=== PATIENT | female | born 1995 | race Caucasian/White ===

== ENCOUNTER 2022-01-24 15:11 | Emergency (ER) | payer OTHER, SELFPAY ==
[2022-01-24 15:17] VITALS: BP 125/65; PULSE 88; RESP 16; TEMP 36.7; O2SAT 99
--- NOTE | 2022-01-24 15:39 | ED.GENADUL_ITS ---
Discharge Plan Disposition Patient Disposition: HOME Condition: Improving Discharge Details Clinical Impression: Neck pain on left side Primary Care Provider: Mercedes Munguia ED Provider: Avtar Louie Home Meds and New Rx's Prescriptions: New ibuprofen 800 mg tablet 800 mg PO TID PRNQty: 20 0RF cyclobenzaprine 5 mg tablet 5 mg PO TID PRNQty: 10 0RF Continued lamotrigine 100 mg tablet 100 mg PO DAILY 0RF sertraline 100 mg tablet 100 mg PO DAILY 0RF melatonin 5 mg capsule PO PRN 0RF Mirena 20 mcg/24 hours (6 yrs) 52 mg intrauterine device 1 insert intrauterine ONCE Qty: 1 0RF Rx Instructions: as a single dose Zyrtec 10 mg capsule 10 mg PO DAILY 0RF CBD PO PRN0RF multivitamin Tablet 1 tab PO DAILY 0RF buspirone 5 mg Tablet 5 mg PO DAILY 0RF Discharge Instructions Instructions: Neck Pain (ED) Additional Instructions: Flexeril and ibuprofen as directed, Flexeril may cause drowsiness. Cool and/or warm compresses every 2 hours for 20 minutes. Gentle stretching as tolerated, advance activity as tolerated. Please watch for new or worsening symptoms and return to the ER for any. Lastly, I would like you to contact your primary care provider tomorrow to discuss your ER visit and need for potential outpatient reevaluation. Discharge Data Discharge Date/Time-TO BE ENTERED AT DEPARTURE: 01/24/22 16:38 Medical Decision Making 26-year-old female presents to the ER reporting that she went to bed last night feeling well, upon waking she moved her head and felt a pop on the left side of her neck and now her neck has been sore and stiff all day. She denies recent illness or trauma, denies any fever. Denies any radiation of the pain, numbness, tingling, weakness. Examination is consistent with musculoskeletal discomfort. She is afebrile, and no nuchal rigidity whatsoever. While she does not have an obvious muscle spasm, she does state that her neck on the left side feels stiff and she has increased pain with movement. Given there is no neurologic component and she has no midline point tenderness I do not believe that an x-ray is indicated. We discussed options, plan is to give IM Norflex and Toradol. Will provide a prescription for ibuprofen and Flexeril. Patient has not taken any [id number] medications for her discomfort prior to arrival. She is comfortable with this plan and has no additional questions or concerns. Standard discharge and return precautions were provided This documentation was generated using [employer] system, please disregard any oddities of phrase or misspellings. Medical Records Medical records reviewed: Yes I reviewed the patient's medical records. HPI General Mode of arrival: ambulatory . Date/Time Provider Initiated Documentation: 01/24/22 15:36 . Limitations to Documentation: no limitations . Information obtained by: patient . History of Present Illness 26 year old F presents to the emergency department with the chief complaint of L sided neck pain, described as moderate, with intensity rated at 6. Quality is described as aching and sharp, and is localized to the neck and left. Patient reports no radiation. Patient started experiencing this hour(s) (upon waking this morning) and it has been constant. improves with Immobilization improves symptom(s), Movement worsens symptoms . Patient notes no other symptoms.. Patient did receive the following treatments prior to arrival, none Related Data Home Medications Medication Instructions Recorded Confirmed lamotrigine 100 mg tablet 100 mg PO DAILY 08/24/21 01/24/22 melatonin 5 mg capsule mg PO PRN cap 08/24/21 08/28/21 sertraline 100 mg tablet 100 mg PO DAILY 08/24/21 01/24/22 levonorgestrel 20 mcg/24 hours (7 1 insert INTRAUTERINE ONCE #1 ea 08/25/21 01/24/22 yrs) 52 mg intrauterine device (Mirena) CBD PO PRN 08/28/21 08/28/21 cetirizine 10 mg capsule (Zyrtec) 10 mg PO DAILY 08/28/21 01/24/22 multivitamin 1 tab PO DAILY 08/28/21 01/24/22 buspirone 5 mg tablet 5 mg PO DAILY 01/24/22 01/24/22 cyclobenzaprine 5 mg tablet 5 mg PO TID PRN #10 tab 01/24/22 ibuprofen 800 mg tablet 800 mg PO TID PRN #20 tab 01/24/22 Previous Rx's Medication Instructions Recorded levonorgestrel 20 mcg/24 hours (7 1 insert INTRAUTERINE ONCE #1 ea 08/25/21 yrs) 52 mg intrauterine device (Mirena) cyclobenzaprine 5 mg tablet 5 mg PO TID PRN #10 tab 01/24/22 ibuprofen 800 mg tablet 800 mg PO TID PRN #20 tab 01/24/22 Allergies Allergy/AdvReac Type Severity Reaction Status Date / Time Environmental Allergies Allergy Uncoded 01/24/22 15:22 General Stated Complaint: Nk/Back Pain NANCI: 3 Review of Systems Constitutional Constitutional: Denies fever(s), Denies headache(s) and Denies weakness Eyes Eyes: Denies change in vision ENT Ears, Nose, Mouth, and Throat: Denies headache(s), Reports neck pain and Denies sore throat Cardiovascular Cardiovascular: Denies chest pain and Denies dyspnea Respiratory Respiratory: Denies dyspnea Musculoskeletal Musculoskeletal: Denies arthralgias, Reports neck pain, Denies numbness, Reports stiffness and Denies tingling Integumentary/Breasts Skin/Breast: Denies rash Neurologic Neurologic: Denies headache(s), Denies numbness, Denies tingling and Denies weakness PFSH All Active Problems Neck pain on left side (Acute) Overweight (BMI 25.0-29.9) (Acute) Depression (Chronic) Misdiagnosed as bipolar. has psychiatrist prescriber. Bonita Freitas. IUD (intrauterine device) in place (Acute) 2019 Family History Mother Colon polyps Thyroid condition Father , 38 Epilepsy Brother No problems noted. Maternal Grandfather , 60'S Cancer Brain cancer Colon cancer Paternal Grandfather No problems noted. Maternal Grandmother Depression Colon cancer Breast cancer Paternal Grandmother Depression Social History Smoking/Tobacco Use Status: Never Second Hand Exposure: No Smoking risk assessment performed?: Yes Alcohol Intake: current Alcohol Intake frequency: a few times a week Alcohol type: beer, wine and hard liquor Counseling given: Yes Details: recommended max of 1 beer/day. Decrease ETOH content in beer Drug use: Daily Substance use type: marijuana Caregiver/Support person: No Household members: spouse Housing: house Number of Children: 0 Communication Needs: Hard of Hearing Education Level: college Details: [employer] [place]. Do you need help understanding health information?: Rarely current occupation: currently not employed. working on their house (); Pets and animals: Yes Pets and animals: dog(s) Sexually active: Yes Do you think of yourself as: bisexual Current gender identity: female What is your relationship status?: How often do you talk on the phone with friends or family?: three or more times per week How often do you get together with friends or relatives?: twice per week How often do you attend jain or gnosticist services?: 1-3 times per year Do you belong to any clubs or organized social groups?: no Panel score (0-1 are the most socially isolated patients): 2 What type of physical activity do you participate in: walking, bicycling and weight lifting Duration: 45-60 minutes/day Frequency: 3-4 times per week Hermila/Sikh: None Special hermila needs: No Seatbelt use: always Helmet use: Yes Helmet use: always Drive intox or ride w/intox 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 Female Reproductive History Menstrual control method: progestin IUCD (mirena 2019) Exam Const General: cooperative, healthy appearing, comfortable and no acute distress Orientation: alert, awake and oriented x3 HENMT Head: normal to inspection, normocephalic and atraumatic Face and sinus: normal facial exam Mouth: moist mucous membranes Eyes General: appearance normal, both eyes and all related structures Conjunctivae: conjunctivae normal Neck Neck: normal visual inspection, no lymphadenopathy, no meningeal signs, trachea midline, supple and tender Other: Patient does have a follow-up range of motion of her neck, no meningeal signs. Patient does have increased discomfort with movement to the ipsilateral side. There is discomfort across her sternocleidomastoid and her superior trapezius on the left side. No warmth, erythema, swelling, or obvious spasm. Resp Effort & Inspection: normal respiratory effort and able to speak in complete sentences Auscultation: clear to auscultation bilaterally Cardio Rate: regular rate Rhythm: regular rhythm Back/Spine/Pelvis Back: no CVA tenderness and No back tenderness Skin General skin exam: no rashes or lesions noted Neuro General: patient alert, patient awake, moves all extremities and no focal motor deficits Cognition: normal cognition Speech: speech normal Gait: normal gait Motor: muscle tone normal throughout, strength 5/5 throughout, no movement abnormalities noted and no fasciculations Sensory Exam: no sensory deficits noted Extrem General: normal to inspection, full ROM and capillary refill normal Psych Appearance: grossly normal Mental Status: mental status grossly normal Course Vital Signs Vital signs: Vital Signs Temperature 36.7 C 01/24/22 15:17 Pulse 88 01/24/22 15:17 Respiratory Rate 16 01/24/22 15:17 Blood Pressure 125/65 01/24/22 15:17 Pulse Oximetry 99 01/24/22 15:17 Temperature 36.7 C 01/24/22 15:17 Temperature Source Skin 01/24/22 15:17 Pulse 88 01/24/22 15:17 Respiratory Rate 16 01/24/22 15:17 Respiratory Effort 01/24/22 15:17 Blood Pressure 125/65 01/24/22 15:17 Blood Pressure Position Sitting 01/24/22 15:17 Pulse Oximetry 99 01/24/22 15:17 Oxygen Delivery Method Room Air 01/24/22 15:17 Oxygen Flow Rate 0 01/24/22 15:17 Pain Level 8 01/24/22 15:17
[2022-01-24] MEDS: Ketorolac 60 MG/2 ML VIAL IM (16:35)
[2022-01-24] MEDS: Orphenadrine 60 MG/2 ML VIAL IM (16:35)
== END 2022-01-24 16:38 | disposition home or self-care (01) ==
PROVIDERS: Emergency Provider Physician Assistant; PCP Family Medicine
DX: M54.2 Cervicalgia (principal)
CPT/HCPCS: 96372; 99284; J2360; 99283; J1885

== ENCOUNTER 2022-02-08 14:08 | Outpatient (REF) | payer OTHER, SELFPAY ==
[2022-02-10 12:03] LABS: COVID-19 RT-PCR UVMMC Result Negative (Negative)
== END 2022-02-08 14:09 | disposition home or self-care (01) ==
LOC: LBN 14:08
PROVIDERS: PCP Family Medicine; Visit Provider Physician Assistant Medical
DX: Z20.822 Contact with and (suspected) exposure to COVID-19 (principal)
CPT/HCPCS: U0003

== ENCOUNTER 2022-05-17 03:36 | Outpatient (CLI) | payer OTHER, SELFPAY ==
[2022-05-17 22:15] LABS: Rheumatoid Factor <8.6 IU/mL (<12.0)
== END 2022-05-17 03:37 | disposition home or self-care (01) ==
LOC: LOS 03:36
PROVIDERS: PCP Family Medicine; Visit Provider Family Medicine
DX: M25.561 Pain in right knee (principal); M25.562 Pain in left knee; M79.642 Pain in left hand; G89.29 Other chronic pain
CPT/HCPCS: 36415; 86431

== ENCOUNTER 2022-07-14 02:39 | Outpatient (CLI) | payer OTHER, SELFPAY ==
[2022-07-14 12:42] LABS: HCG Quant, Pregnancy 70240 mIU/mL (1-3)
== END 2022-07-14 02:40 | disposition home or self-care (01) ==
LOC: LBO 02:39
PROVIDERS: PCP Family Medicine; Visit Provider Advanced Practice Midwife
DX: O26.891 Other specified pregnancy related conditions, first trimester (principal); R10.32 Left lower quadrant pain; Z3A.01 Less than 8 weeks gestation of pregnancy
CPT/HCPCS: 36415; 84702

== ENCOUNTER 2022-07-16 01:15 | Outpatient (CLI) | payer OTHER, SELFPAY | END 2022-07-16 01:16 | disposition home or self-care (01) | LOC: LBO 01:15 | PROVIDERS: PCP Family Medicine; Visit Provider Advanced Practice Midwife | DX: O26.891 Other specified pregnancy related conditions, first trimester (principal); R10.32 Left lower quadrant pain; Z3A.01 Less than 8 weeks gestation of pregnancy | CPT/HCPCS: 36415; 84702 ==

== ENCOUNTER 2022-08-23 04:07 | Outpatient (CLI) | payer OTHER, SELFPAY ==
[2022-08-23 15:32] LABS: Abs Immature Grans 0.04 10^3/uL (0.0-0.06); Absolute Basophil Count 0.02 10^3/uL (0.0-0.2); Absolute Eosinophil Count 0.33 10^3/uL (0.0-0.7); Absolute Lymphocyte Count 1.95 10^3/uL (1.2-3.4); Absolute Monocyte Count 0.61 10^3/uL (0.1-0.8); Absolute Neutrophil Count 6.74 10^3/uL (1.2-6.7); Basophils % 0.2; Eosinophils % 3.4; HCT 35.7 % (36.0-46.0); HGB 12.5 g/dL (11.2-15.7); Immature Grans % 0.4; Lymphocytes % 20.1; MCH 31.3 pg (27.0-33.0); MCV 89 fL (80-95); MPV 11.4 fL (8.0-11.0); Monocytes % 6.3; Neutrophils % 69.6; Platelet Count 261 10^3/uL (130-400); RDW 11.7 % (11.7-14.6); RDW-SD 37.6 fL; WBC 9.69 10^3/uL (4.4-10.8)
[2022-08-23 16:28] LABS: TSH (W/Ref FT4) 2.06 uIU/mL (0.36-3.74)
[2022-08-23 18:02] LABS: *AMPHETAMINES SCREEN URINE Negative (Negative); *BARBITURATES SCREEN URINE Negative (Negative); *BENZODIAZEPINES SCREEN URINE Negative (Negative); Cannabinoids THC Negative (Negative); Cocaine Screen,Urine Negative (Negative); METHADONE URINE SCREEN Negative (Negative); OPIATES URINE SCREEN Negative (Negative)
[2022-08-23 18:05] LABS: Tricyclic Antidepressants Negative (Negative)
[2022-08-24 09:36] LABS: Hepatitis B Surface Ag Negative (Negative)
[2022-08-24 10:33] LABS: Hepatitis C Ab w Rflx HCV PCR Negative (Negative)
[2022-08-24 11:09] LABS: Rubella IgG Ab (UVM) Positive (See Note); Varicella IgG Antibody Negative (See Note)
[2022-08-24 11:20] LABS: HIV-1/2 Ag & Ab Screen Negative (Negative)
[2022-08-25 14:13] LABS: Syphilis IgG w/Reflex Nonreactive (Nonreactive)
[2022-08-25 14:44] LABS: Chlamydia Result Negative (Negative); GC Result Negative (Negative)
[2022-08-27 18:04] LABS: Specimen WB Whole Blood
[2022-08-31 10:32] LABS: Buprenorphine Negative ng/mL (Cutoff: 5.0); Norbuprenorphine Negative ng/mL (Cutoff: 2.5)
[2022-09-14 15:53] LABS: Result Summary NEGATIVE; Specimen WB Whole Blood
== END 2022-08-23 04:08 | disposition home or self-care (01) ==
LOC: LBO 04:07
PROVIDERS: Advanced Practice Midwife; PCP Family Medicine; Visit Provider Advanced Practice Midwife
DX: O99.341 Other mental disorders complicating pregnancy, first trimester (principal); F41.8 Other specified anxiety disorders; Z3A.11 11 weeks gestation of pregnancy
CPT/HCPCS: 36415; 80307; 80348; 81220; 81222; 81329; 86787; 86803; 86850; 86900; 86901; 87340; 87389; 87491; 87591; 84443; 85025; 86762; 86780; 87086

== ENCOUNTER 2022-08-23 16:56 | Outpatient (REF) | payer OTHER, SELFPAY ==
--- NOTE | 2022-08-23 14:20 | PAPFT_PTH ---
PATIENT: More Machado LOC: [facility] U#:[id number] AGE/SX: 26/F ROOM: RE08/23/[address]: Elva Marquis : 1995 BED: DIS: 08/23/2022 SPEC #: [id number] RECD: 08/23/22 18:25 STATUS: COLLEEN REQ #: [id number] ADELE: 08/23/22 14:[address]: Elva Marquis DEPT: [facility] Cytology RECD BY: Adrianne Lang ENTERED: 08/23/22 18:26 SP TYPE: PAPFT JEAN DR: Mercedes Munguia Tissues: 1 - CX/ENDOCX FOR PAP SMEARS Procedures: PAP THIN PREP/UVM Screening Comments: [id number]
== END 2022-08-23 16:57 | disposition home or self-care (01) ==
LOC: LBN 16:56
PROVIDERS: PCP Family Medicine; Visit Provider Advanced Practice Midwife
DX: Z12.4 Encounter for screening for malignant neoplasm of cervix (principal)
CPT/HCPCS: 88142

== ENCOUNTER 2022-09-20 03:20 | Outpatient (CLI) | payer OTHER, SELFPAY ==
[2022-09-23 12:16] LABS: AFP 36.9 ng/mL; Calculated age at EDD 27 years; Cigarette smoking status non-Smoker; GA used in risk estimate Scan estimate; IVF Pregnancy No; Initial or repeat testing Initial testing; Insulin dependent diabetes No; Maternal Weight 151 lbs; Number of Fetuses 1; Prev Pregnancy w/NTD No; RECOMMENDED FOLLOW UP None.; Results Summary Normal risk
== END 2022-09-20 03:21 | disposition home or self-care (01) ==
PROVIDERS: PCP Family Medicine; Visit Provider Advanced Practice Midwife
DX: Z34.92 Encounter for supervision of normal pregnancy, unspecified, second trimester (principal); Z3A.15 15 weeks gestation of pregnancy
CPT/HCPCS: 36415; 82105

== ENCOUNTER 2022-12-23 03:16 | Outpatient (CLI) | payer OTHER, SELFPAY ==
[2022-12-23 11:14] LABS: HCT 36.5 % (36.0-46.0); HGB 12.3 g/dL (11.2-15.7); MCHC 33.7 % (32.0-36.0); MCV 92 fL (80-95); MPV 10.6 fL (8.0-11.0); Platelet Count 211 10^3/uL (130-400); RBC 3.97 10^6/uL (3.93-5.22); RDW 12.4 % (11.7-14.6); RDW-SD 41.7 fL; WBC 9.03 10^3/uL (4.4-10.8)
[2022-12-23 11:46] LABS: Glucose,1 Hr (Glucola) 108 mg/dL (80-140)
== END 2022-12-23 03:17 | disposition home or self-care (01) ==
LOC: LBO 03:16
PROVIDERS: PCP Family Medicine; Visit Provider Advanced Practice Midwife
DX: Z34.93 Encounter for supervision of normal pregnancy, unspecified, third trimester (principal)
CPT/HCPCS: 36415; 82950; 85027

== ENCOUNTER 2023-02-10 12:04 | Outpatient (REF) | payer OTHER, SELFPAY ==
[2023-02-10 17:10] LABS: *AMPHETAMINES SCREEN URINE Negative (Negative); *BARBITURATES SCREEN URINE Negative (Negative); *BENZODIAZEPINES SCREEN URINE Negative (Negative); Cannabinoids THC Negative (Negative); Cocaine Screen,Urine Negative (Negative); METHADONE URINE SCREEN Negative (Negative); OPIATES URINE SCREEN Negative (Negative); Tricyclic Antidepressants Negative (Negative)
[2023-02-18 18:36] LABS: Buprenorphine Negative ng/mL (Cutoff: 5.0); Norbuprenorphine Negative ng/mL (Cutoff: 2.5)
== END 2023-02-10 12:05 | disposition home or self-care (01) ==
LOC: LBN 12:04
PROVIDERS: PCP Family Medicine; Visit Provider Advanced Practice Midwife
DX: Z34.90 Encounter for supervision of normal pregnancy, unspecified, unspecified trimester (principal)
CPT/HCPCS: 80307; 80348; 87081

== ENCOUNTER 2023-03-14 14:37 | Inpatient (IN) | payer OTHER, SELFPAY ==
[2023-03-14] VITALS (10 sets, daily range): BP systolic 108–143; BP diastolic 58–76; PULSE 60–103; RESP 17; TEMP 36.7–36.9
--- NOTE | 2023-03-14 14:40 | W.PM.OBHPL1 ---
Date of service: 03/14/23 Time of Service: 14:40 Assessment and Plan Assessment and plan (1) Normal labor: Status: Acute Assessment and plan: 1. admit, IV hydration and enti nuasea/ antiacid prn 2. CBC, type and screen and COVID screen 3. Intermittent monitoring of FHR 4. Support labor and reassess in 2-4 hours or prn 5. Expect NVD. KH OB-HPI Labor/Delivery History of Present Illness Reason for Visit: NST Chief Complaint: Uterine Contractions. NBA Calculator Estimated Delivery Date Method Current WG Current Estimate 03/10/23 Ultrasound #1 40w 4d Other Estimates 03/07/23 LMP (Certain) 41w 0d History of Present Expected Delivery Route/Plan - CNM FOB/ - Keo Faria (first child) BB no circ GBS neg Varicella non immune offer PP Specific Issues/Plan 1. Depression, bipolar disorder- takes lamictal and sertraline 1a. Decreased lamictal dose to 50 2. Genetic testing options -Panorama low risk X 5, male, CF neg, and SMA neg, desires AFP-NL 3. Symphysis pubis discomfort - referral to PT Assessment: History Reviewed & Current Narrative: Cherie and Keo present in early labor. She has been having contractions that are regular since 0730 today but became every 4-5 at approximately 1pm. Denies ROM or show. Baby has been active. She is tolerating contractions fairly well with encouragement. She has had nausea and vomiting today as well. Will admit and give IV hydration and zofran/protonix and reassess. Review of Systems All systems reviewed & are unremarkable except as noted in HPI and below PFSH All Active Problems (Updated 03/14/23 @ 14:54 by Elva Johnson CNM) Normal labor (Acute) Maternal varicella, non-immune (Acute) Anxiety (Chronic) (Acute) Depression (Chronic) Misdiagnosed as bipolar. has psychiatrist prescriber. Bonita Freitas Medical History Bipolar 1 disorder Left lower quadrant abdominal pain affecting in first trimester Overweight (BMI 25.0-29.9) Suprapubic discomfort Uncertain lie of fetus Family History Mother Colon polyps Thyroid condition Father , 38 Epilepsy Brother No problems noted. Maternal Grandfather , 60'S Cancer Brain cancer Maternal Grandmother Depression Paternal Grandmother Depression Anxiety Maternal Aunt Breast cancer Paternal Grandfather Heart disease Paternal Aunt PKU (phenylketonuria) Social History Smoking/Tobacco Use Status: Never Second Hand Exposure: No Smoking risk assessment performed?: Yes Alcohol Intake: current Alcohol Intake frequency: a few times a week Alcohol type: beer, wine and hard liquor Counseling given: Yes Details: recommended max of 1 beer/day. Decrease ETOH content in beer Drug use: Daily Substance use type: marijuana Caregiver/Support person: No Household members: spouse Housing: house Number of Children: 0 Communication Needs: Hard of Hearing Education Level: college Details: [employer]. Do you need help understanding health information?: Rarely current occupation: currently not employed. working on their house (); Pets and animals: Yes Pets and animals: dog(s) Sexually active: Yes Do you think of yourself as: bisexual Current gender identity: female What is your relationship status?: How often do you talk on the phone with friends or family?: three or more times per week How often do you get together with friends or relatives?: twice per week How often do you attend orthodox or sikh services?: 1-3 times per year Do you belong to any clubs or organized social groups?: no Panel score (0-1 are the most socially isolated patients): 2 What type of physical activity do you participate in: walking, bicycling and weight lifting Duration: 45-60 minutes/day Frequency: 3-4 times per week Hermila/Methodist: None Special hermila needs: No Seatbelt use: always Helmet use: Yes Helmet use: always Drive intox or ride w/intox substitute bus driver: No Do you feel safe at home: Yes Do you feel safe in your relationship?: Yes Female Reproductive History Menstrual control method: progestin IUCD (mirena 2018) History History 1 Para 0 Hx # Term Pregnancies 0 Multiple births 0 Hx # Pregnancies 0 Ectopic pregnancies 0 AB induced 0 Hx Number of Living Children 0 AB spontaneous 0 Meds Allergies and Home Medications Allergies Allergy/AdvReac Type Severity Reaction Status Date / Time Environmental Allergies Allergy Uncoded 03/14/23 14:49 Home Medications Medication Instructions Recorded Confirmed Type prenat.vits,marcia,agz-yyvn-ptqwm 1 tab PO DAILY 07/27/22 03/14/23 History sertraline 100 mg tablet 50 mg PO DAILY 08/16/22 03/14/23 History lamotrigine 100 mg tablet 50 mg PO DAILY 09/20/22 03/14/23 History cetirizine 10 mg capsule (Zyrtec) 10 mg PO DAILY PRN allergy symptoms 01/06/23 03/14/23 History pantoprazole 40 mg tablet,delayed 40 mg PO DAILY #30 tabs 02/02/23 03/14/23 Rx release (Protonix) Exam Physical Exam Vital signs: Temp Pulse Resp BP 98.1 F 67 17 126/76 03/14/23 14:03 03/14/23 14:03 03/14/23 14:03 03/14/23 14:03 Vital Signs Reviewed: Yes Constitutional Constitutional: moderate distress (due to labor and pain) Detailed Labor and Delivery Exam Dilation: 2 Effacement (%): 80 station: -1 Position: ALEXI Cervix position: posterior Consistency: soft Gloria Score: Cervical Points Exam 0 1 2 3 Dilation Closed 1-2cm 3-4 cm 5-6cm Effacement 0-30% 40-50% 60-70% 80% Consistency Firm Medium Soft Station -3 -2 -1,0 +1,+2 Position Posterior Mid Anterior GLORIA Score(Cervical Ripeness Score): 8 Amniotic Membrane Status: Intact Contraction Frequency(min): 2-3 Contraction Duration(sec): 60 Contraction Intensity: Moderate Fetus A Heart Rate Baseline: 125 Monitor Accelerations: 15 X 15 Monitor Decelerations: None Variability: Moderate (6-25 BPM) Categories: Category I Est. Weight: 7 lb 8 oz HEENT Exam HEENT Exam: Normal Neck Exam Neck Exam: Normal (normal visual exam) Breast Exam Breast Exam: Not Done Respiratory Exam Respiratory Exam: Normal Cardiovascular Exam Cardiovascular Exam: Normal Abdominal Exam Abdominal Exam: Normal (gravid, size equals dates) Rectal Exam Rectal Exam: Not Done Exam Exam: Normal Extremities Exam Extremities Exam: Normal Back/Spine/Pelvis Exam Back Exam: Not Done Pelvis Adequate: Yes Skin Exam Skin Exam: Normal Neurological Exam Neurological Exam: Normal Psychiatric Exam Psychiatric Exam: Normal (anxiety is controlled with information and support) Results Results Group Beta Strep: Negative Blood Type: A+ Rubella Status: Immune Varicella Immunity: Nonimmune Lab Results: Hep B&C neg, HIV neg, Syphilis Neg, GC CT neg, Panorama LR male, CF neg, SMA neg, 1 hour 108 Risk Assessment Risk for Shoulder Dystocia Historical/Initial OB: NEGATIVE FOR: Pelvic Abnormality, Pre- BMI>30, Previous Shoulder Dystocia or Previous Macrosomia 40 Weeks: NEGATIVE FOR: EFW> 4500 gms, Maternal Weight Gain >40lb or Post Dates Delivery Plan @ 36wks: NVD planned. Delivery Plan @ 40 wks: NVD Risk for Pre-Eclampsia Yes, if one or more: NEGATIVE FOR: Hx Pre-E/Gest HTN, Chronic HTN, Multiple Gestation, Pre-gestational DM, Renal Disease, Systemic Lupus or APA Syndrome Yes, if 2 or more: POSITIVE FOR: Nulliparity; NEGATIVE FOR: Age>= 35 yrs, >10yr btwn pregnancies, BMI>30, ethinicty, Mother/Sister w/ Pre-E or Previous IUGR Risk for Post- Hemorrhage Initial: NEGATIVE FOR: Multiple Gestation, Previous PPH, Known Clotting Deficiency, Grand Multiparity or Anticoagulation At Risk?: No Counseled re: Active Management: Yes Date/Initials: 03/14/23 Risks Reviewed Risks Reviewed Upon Admission: Yes
[2023-03-14 15:06] LABS: Source Nasal/Nares
[2023-03-14 15:11] LABS: HCT 36.3 % (36.0-46.0); HGB 12.6 g/dL (11.2-15.7); MCH 30.7 pg (27.0-33.0); MCHC 34.7 % (32.0-36.0); MCV 88 fL (80-95); MPV 12.6 fL (8.0-11.0); Platelet Count 180 10^3/uL (130-400); RBC 4.11 10^6/uL (3.93-5.22); RDW 12.8 % (11.7-14.6); RDW-SD 41.3 fL; WBC 12.71 10^3/uL (4.4-10.8)
[2023-03-14] MEDS: Normal Saline Flush 10 ML SYR IVP (15:15)
[2023-03-14] MEDS: Lactated Ringers 1,000 ML 1000 ML IV (15:17)
[2023-03-14] MEDS: Ondansetron 4 MG/2 ML VIAL IVP (15:18)
[2023-03-14 15:59] LABS: COVID-19 PCR Negative (Negative)
--- NOTE | 2023-03-14 18:45 | W.PM.OBNL1 ---
Date of service: 03/14/23 Time of Service: 18:45 Pelvic Exam Dilation: 4 Effacement (%): 90 station: -1 Cervix Position: posterior Consistency: soft Comments: + show Contractions Monitor Mode: Palpation Contraction Frequency(min): 2-4 Contraction Duration(sec): 60 Intensity: Moderate/Strong Fetus A Monitor: Doppler Heart Rate Baseline: 125 Assessment and Plan Assessment and plan (1) Normal labor: Status: Acute Assessment and plan: 1. continue present management, options for pain management reviewed, will continue with behavioral methods at this time, consider nitrous as needed 2. expect NVD Objective Abnormal lab results 03/14/23 Range/Units 14:37 WBC 12.71 H (4.4-10.8) 10^3/uL MPV 12.6 H (8.0-11.0) fL Temp Pulse Resp BP 98.1 F 61 17 127/75 03/14/23 15:20 03/14/23 16:21 03/14/23 15:20 03/14/23 16:21 Laboratory Results WBC 12.71 10^3/uL (4.4-10.8) H 03/14/23 14:37 RBC 4.11 10^6/uL (3.93-5.22) 03/14/23 14:37 Hgb 12.6 g/dL (11.2-15.7) 03/14/23 14:37 Hct 36.3 % (36.0-46.0) 03/14/23 14:37 MCV 88 fL (80-95) 03/14/23 14:37 MCH 30.7 pg (27.0-33.0) 03/14/23 14:37 MCHC 34.7 % (32.0-36.0) 03/14/23 14:37 RDW 12.8 % (11.7-14.6) 03/14/23 14:37 Plt Count 180 10^3/uL (130-400) 03/14/23 14:37 MPV 12.6 fL (8.0-11.0) H 03/14/23 14:37 COVID-19 Source Nasal/Nares 03/14/23 12:45 SARS-CoV-2 (PCR) Negative (Negative) 03/14/23 12:45 Patient ABO/Rh A Positive 03/14/23 14:57 Antibody Screen NEGATIVE 03/14/23 14:57 Vital Signs Reviewed: Yes Subjective Interval history since last seen: working well with contractions, currently in shower. KH Results Hemoglobin/Hematocrit: Hgb 12.6 g/dL (11.2-15.7) 03/14/23 14:37 Hct 36.3 % (36.0-46.0) 03/14/23 14:37 Abnormal Lab Findings: Abnormal Labs 03/14/23 14:37 WBC 12.71 H MPV 12.6 H
--- NOTE | 2023-03-14 18:48 | W.OBNST ---
Date of service: 03/14/23 Time of Service: 14:00 NST Evaluation Reason for NST Reasons for Nonstress Test: OTHER, SEE COMMENT Reason for NST Other: rule out labor Gestational Age Gestational Age in Weeks and Days: 40 Weeks and 4Days Test and Monitor Explained Test/Monitor Explained: Test Explained, Monitor Explained and Patient Verbalized Understanding Vital Signs Blood Pressure: 126/76 Pulse: 67 Temperature: 98.1 F Urine Results Urine Protein: Negative Urine Ketones: Positive Urine Glucose: Negative Urine Blood: Negative NST Information Date on Monitor: 03/14/23 Time on Monitor: 13:39 Date off Monitor: 03/14/23 Time off Monitor: 14:15 Total Time on Monitor: 36 NST Interventions: PO Hydration Contraction Frequency: 2-4 NST Evaluation Patient States Movement: Present FHR Baseline: 130 Variability: Moderate 6-25 bpm Accelerations: 15x15 Decelerations: None NST Results: Reactive Note Ultrasound Done: N/A. NST Note Note: NST is reactive and reassuring. Jody is in early labor but feels she needs support and will be admitted. BHARTI NST Reviewed and Verified by: Elva Johnson
[2023-03-14] MEDS: Lactated Ringers 1,000 ML 200 ML IV (19:18)
--- NOTE | 2023-03-14 20:22 | W.PM.OBNL1 ---
Date of service: 03/14/23 Time of Service: 20:22 Pelvic Exam Comments: deferred Contractions Monitor Mode: Palpation Contraction Frequency(min): 2-4 Contraction Duration(sec): 60-80 Intensity: Moderate/Strong Fetus A Monitor: Doppler Heart Rate Baseline: 130 Amniotic Membrane Status: Intact Assessment and Plan Assessment and plan (1) Normal labor: Status: Acute Assessment and plan: 1. continue present management 2. labor support offered often 3. Expect NVD. KH Objective Abnormal lab results 03/14/23 Range/Units 14:37 WBC 12.71 H (4.4-10.8) 10^3/uL MPV 12.6 H (8.0-11.0) fL Temp Pulse Resp BP 98.2 F 83 17 127/73 03/14/23 19:05 03/14/23 19:05 03/14/23 15:20 03/14/23 19:05 Laboratory Results WBC 12.71 10^3/uL (4.4-10.8) H 03/14/23 14:37 RBC 4.11 10^6/uL (3.93-5.22) 03/14/23 14:37 Hgb 12.6 g/dL (11.2-15.7) 03/14/23 14:37 Hct 36.3 % (36.0-46.0) 03/14/23 14:37 MCV 88 fL (80-95) 03/14/23 14:37 MCH 30.7 pg (27.0-33.0) 03/14/23 14:37 MCHC 34.7 % (32.0-36.0) 03/14/23 14:37 RDW 12.8 % (11.7-14.6) 03/14/23 14:37 Plt Count 180 10^3/uL (130-400) 03/14/23 14:37 MPV 12.6 fL (8.0-11.0) H 03/14/23 14:37 COVID-19 Source Nasal/Nares 03/14/23 12:45 SARS-CoV-2 (PCR) Negative (Negative) 03/14/23 12:45 Patient ABO/Rh A Positive 03/14/23 14:57 Antibody Screen NEGATIVE 03/14/23 14:57 Subjective Interval history since last seen: Cherie has requested and started using nitrous for pain relief with contractions. She is working well with them. IV hydration due to occasional vomiting due to pain. Keo is supportive. KH Interventions Pain Management Interventions: Nitrous Oxide , instructed on proper use and potential side effects, verbalizes understanding . Results Hemoglobin/Hematocrit: Hgb 12.6 g/dL (11.2-15.7) 03/14/23 14:37 Hct 36.3 % (36.0-46.0) 03/14/23 14:37 Abnormal Lab Findings: Abnormal Labs 03/14/23 14:37 WBC 12.71 H MPV 12.6 H
--- NOTE | 2023-03-14 23:00 | W.PM.OBNL1 ---
Date of service: 03/14/23 Time of Service: 23:00 Pelvic Exam Dilation: 8 Effacement (%): 100 station: 0 Contractions Monitor Mode: Palpation Contraction Frequency(min): 2 Contraction Duration(sec): 60 Intensity: Strong Fetus A Monitor: Doppler Heart Rate Baseline: 115 Accelerations: Present (auscultated at 140 during contractions, 115-120 between) Amniotic Membrane Status: Intact Assessment and Plan Assessment and plan (1) Normal labor: Status: Acute Assessment and plan: 1. Continue current management, expect NVD. KH Objective Abnormal lab results 03/14/23 Range/Units 14:37 WBC 12.71 H (4.4-10.8) 10^3/uL MPV 12.6 H (8.0-11.0) fL Temp Pulse Resp BP 98.0 F 78 17 113/60 03/14/23 22:26 03/14/23 22:26 03/14/23 15:20 03/14/23 22:26 Laboratory Results WBC 12.71 10^3/uL (4.4-10.8) H 03/14/23 14:37 RBC 4.11 10^6/uL (3.93-5.22) 03/14/23 14:37 Hgb 12.6 g/dL (11.2-15.7) 03/14/23 14:37 Hct 36.3 % (36.0-46.0) 03/14/23 14:37 MCV 88 fL (80-95) 03/14/23 14:37 MCH 30.7 pg (27.0-33.0) 03/14/23 14:37 MCHC 34.7 % (32.0-36.0) 03/14/23 14:37 RDW 12.8 % (11.7-14.6) 03/14/23 14:37 Plt Count 180 10^3/uL (130-400) 03/14/23 14:37 MPV 12.6 fL (8.0-11.0) H 03/14/23 14:37 COVID-19 Source Nasal/Nares 03/14/23 12:45 SARS-CoV-2 (PCR) Negative (Negative) 03/14/23 12:45 Patient ABO/Rh A Positive 03/14/23 14:57 Antibody Screen NEGATIVE 03/14/23 14:57 Subjective Interval history since last seen: Nitrous is working well for Cherie, she is breathing through contractions well. Starting to feel some vaginal pressure but no involuntary urge to push. KH Results Hemoglobin/Hematocrit: Hgb 12.6 g/dL (11.2-15.7) 03/14/23 14:37 Hct 36.3 % (36.0-46.0) 03/14/23 14:37 Abnormal Lab Findings: Abnormal Labs 03/14/23 14:37 WBC 12.71 H MPV 12.6 H
[2023-03-15] VITALS (15 sets, daily range): BP systolic 106–118; BP diastolic 53–77; PULSE 67–99; RESP 16–17; TEMP 36.5–37.3
--- NOTE | 2023-03-15 01:03 | W.PM.OBNL1 ---
Date of service: 03/15/23 Time of Service: 01:03 Contractions Monitor Mode: Palpation Contraction Frequency(min): 2-3 Contraction Duration(sec): 60-80 Intensity: Strong Fetus A Monitor: Doppler Heart Rate Baseline: 120 Assessment and Plan Assessment and plan (1) Normal labor: Status: Acute Assessment and plan: 1. Will encourage position changes and emptying of bladder in BR 2. Reassess in 1 hour or prn. KH Objective Abnormal lab results 03/14/23 Range/Units 14:37 WBC 12.71 H (4.4-10.8) 10^3/uL MPV 12.6 H (8.0-11.0) fL Temp Pulse Resp BP 98.1 F 82 17 118/64 03/15/23 00:22 03/15/23 00:22 03/14/23 15:20 03/15/23 00:22 Laboratory Results WBC 12.71 10^3/uL (4.4-10.8) H 03/14/23 14:37 RBC 4.11 10^6/uL (3.93-5.22) 03/14/23 14:37 Hgb 12.6 g/dL (11.2-15.7) 03/14/23 14:37 Hct 36.3 % (36.0-46.0) 03/14/23 14:37 MCV 88 fL (80-95) 03/14/23 14:37 MCH 30.7 pg (27.0-33.0) 03/14/23 14:37 MCHC 34.7 % (32.0-36.0) 03/14/23 14:37 RDW 12.8 % (11.7-14.6) 03/14/23 14:37 Plt Count 180 10^3/uL (130-400) 03/14/23 14:37 MPV 12.6 fL (8.0-11.0) H 03/14/23 14:37 COVID-19 Source Nasal/Nares 03/14/23 12:45 SARS-CoV-2 (PCR) Negative (Negative) 03/14/23 12:45 Patient ABO/Rh A Positive 03/14/23 14:57 Antibody Screen NEGATIVE 03/14/23 14:57 Subjective Interval history since last seen: Cherie has had mild rectal pressure off and on. Is being encouraged to get out of bed to empty her bladder and will reassess for cervical changes in next hour if no involuntary urge. Her Mother has arrived from out of town to be a secondary support. KH Results Hemoglobin/Hematocrit: Hgb 12.6 g/dL (11.2-15.7) 03/14/23 14:37 Hct 36.3 % (36.0-46.0) 03/14/23 14:37 Abnormal Lab Findings: Abnormal Labs 03/14/23 14:37 WBC 12.71 H MPV 12.6 H
--- NOTE | 2023-03-15 01:37 | W.PM.OBNL1 ---
Date of service: 03/15/23 Time of Service: 01:37 Pelvic Exam Dilation: 10 Effacement (%): 100 station: 0 Contractions Monitor Mode: Palpation Contraction Frequency(min): 2-3 Contraction Duration(sec): 60-80 Intensity: Strong Fetus A Monitor: Doppler Heart Rate Baseline: 125 Assessment Note: No auscultated decelerations before, during or for 60 seconds following contractions. Assessment and Plan Assessment and plan (1) Normal labor: Status: Acute Assessment and plan: 1. Patient is encouraged to bear down with contractions but she is working well with Nitrous and does not have involuntary urge at this time. Will allow for laboring down and reassess in 1-2 hours or as indicated. 2. FHR has been WNL throughout labor via doppler. KH Objective Abnormal lab results 03/14/23 Range/Units 14:37 WBC 12.71 H (4.4-10.8) 10^3/uL MPV 12.6 H (8.0-11.0) fL Temp Pulse Resp BP 98.1 F 82 17 118/64 03/15/23 00:22 03/15/23 00:22 03/14/23 15:20 03/15/23 00:22 Laboratory Results WBC 12.71 10^3/uL (4.4-10.8) H 03/14/23 14:37 RBC 4.11 10^6/uL (3.93-5.22) 03/14/23 14:37 Hgb 12.6 g/dL (11.2-15.7) 03/14/23 14:37 Hct 36.3 % (36.0-46.0) 03/14/23 14:37 MCV 88 fL (80-95) 03/14/23 14:37 MCH 30.7 pg (27.0-33.0) 03/14/23 14:37 MCHC 34.7 % (32.0-36.0) 03/14/23 14:37 RDW 12.8 % (11.7-14.6) 03/14/23 14:37 Plt Count 180 10^3/uL (130-400) 03/14/23 14:37 MPV 12.6 fL (8.0-11.0) H 03/14/23 14:37 COVID-19 Source Nasal/Nares 03/14/23 12:45 SARS-CoV-2 (PCR) Negative (Negative) 03/14/23 12:45 Patient ABO/Rh A Positive 03/14/23 14:57 Antibody Screen NEGATIVE 03/14/23 14:57 Subjective Interval history since last seen: Cherie is in good control of her contractions with use of Nitrous. She agrees to VE and was found to be 10 cm 0 station, + show and leaking small amounts of clear fluid. She has no current urge to push but does do mild grunting. Will allow for laboring down at this time per patient desires. Results Hemoglobin/Hematocrit: Hgb 12.6 g/dL (11.2-15.7) 03/14/23 14:37 Hct 36.3 % (36.0-46.0) 03/14/23 14:37 Abnormal Lab Findings: Abnormal Labs 03/14/23 14:37 WBC 12.71 H MPV 12.6 H
[2023-03-15] MEDS: Oxytocin/Normal Saline 30 UNIT/500 ML BAG 95 UNITS IV (04:42)
--- NOTE | 2023-03-15 05:53 | OBVDS_ITS ---
Date of service: 03/15/23 Time of Service: 05:53 OB Labor/ Delivery Information Baby A Delivery Delivery Method: Spontaneaous Presentation: Cephalic Cephalic Position: Vertex Vertex Position: Left Occipital Anterior Cord Description-Baby A: 3 Vessels, Nuchal Cord (X1 loose) and Clamped/Cut Amniotic Fluid: Meconium (light) Estimated Blood Loss: 150 Delivery Outcome: Liveborn Complications: none Infant Transferred: Remains with Mother Note: Cherie Machado presented midday on 03/14/23 in early labor, reporting contractions began at 0830 but became intense at 1030. She was 2cm on admission and having regular contractions. She progressed to 10 cm on 03/15/23 at 0128 but had no urge to push and choose to labor down with use of Nitrous. FHR via doppler was reassuring in 120-130 range throughout labor. She began to bear down with open mouth pushing at 0221 and second stage huddle was held. Low risk for shoulder dystocia or PPH. She delivered a live male over intact perineum with 1st degree right labial laceration at 0442. Baby was placed skin to skin and positive family bonding was noted. Baby boy had scores of 9 and 10 at 1 and 5 minutes respectively. Cord was double clamped and cut after 5 minutes of delayed cord clamping. Pitocin was begun via IV per protocol after baby delivered. Cord blood obtained. Placenta delivered at 0552, intact with gentle cord traction and maternal pushing effort. Fundus firms to U with massage. EBL 150cc. 1st degree labial laceration is re-approximated using 4.0 vicryl under 1% lidocaine local. Patient tolerated fairly well. Reviewed that labial lacerations can have irregular border when they heal and patient verbalizes understanding but does not want any further repair once edges were brought together. Cherie plans to breast feed. They do not intend to have their baby boy circumcised. Undecided on contraception plan at this time. Expect normal PP course. Baby's weight 8lb 5 oz. Providers Nurse Clinical Technician: Elva Johnson Nurse: Sirena Beltran Nurse: Nata Guajardo Labor/Delivery Information Number of Babies in Womb: 1 Steroids Given: None Reason Steroids Not Administered: N/A Group Beta Strep: Negative Antibiotics Administered: No Rubella Status: Immune Blood Type: A+ Varicella Immunity: Nonimmune Shoulder Dystocia: No Stages of Labor Onset of Labor Date: 03/14/23 Onset of Labor Time: 08:30 Complete Dilatation Date: 03/15/23 Complete Dilatation Time: 01:28 Labor - Stage 1 Duration: 16 hours and 58 minutes ROM Baby A: 03/15/23 ROM Baby A: 01:28 ROM Total Time- Baby A: [id number] Infant Delivery Date-Baby A: 03/15/23 Delivery Time-Baby A: 04:42 Labor Stage 2 Duration: 3 hours and 14 minutes Placenta Delivery Date-Baby A: 03/15/23 Placenta Delivery Time-Baby A: 05:52 Labor-Stage 3 Duration: 1 hours and 10 minutes Total Length of Labor-Baby A: 20 hours and 12 minutes Placenta Status: Delivered Baby A Infant Gender: Male Gestational Status: Term (39-41.6 wks) Gestational Age in Weeks/Days: 40 Weeks and 5 Days Score-1 Minute Interval(Baby A) Heart Rate-1 minute: 100 BPM or Greater Respiratory Effort- 1 minute: Spontaneous/Strong Cry Muscle Tone-1 minute: Active Movement Reflex Response-1 minute: Minimal Response Color-1 minute: [place]/No Cyanosis Total Score-1 minute: 9 Score-5 Minute Interval(Baby A) Heart Rate- 5 minute: 100 BPM or Greater Respiratory Effort-5 minute: Spontaneous/Strong Cry Muscle Tone-5 minute: Active Movement Reflex Response-5 minute: Prompt Response Color-5 minute: [place]/No Cyanosis Total Score- 5 minute: 10
[2023-03-15] MEDS: Dibucaine 1% 28 GM TUBE TP (07:53)
[2023-03-15] MEDS: Ibuprofen 600 MG TAB PO (07:54)
[2023-03-15] MEDS: Docusate Sodium 100 MG CAP PO ×2 (07:54→19:32)
[2023-03-15] MEDS: Sertraline 50 MG TAB PO (07:54)
[2023-03-15] MEDS: Hamamelis Leaf/Glycerin 100 EACH BOX PR (07:54)
[2023-03-15] MEDS: lamoTRIgine 25 MG TAB 50 MG PO (07:59)
[2023-03-15] MEDS: Acetaminophen 325 MG TAB 650 MG PO (19:31)
[2023-03-16 03:05] VITALS: BP 107/68; PULSE 77; TEMP 36.7
[2023-03-16] MEDS: Ibuprofen 600 MG TAB PO (03:16)
[2023-03-16] MEDS: lamoTRIgine 25 MG TAB 50 MG PO (08:30)
[2023-03-16] MEDS: Sertraline 50 MG TAB PO (08:31)
[2023-03-16] MEDS: Docusate Sodium 100 MG CAP PO (08:31)
[2023-03-16 08:35] VITALS: BP 111/72; PULSE 85; RESP 16; TEMP 36.4; O2SAT 97
[2023-03-16] MEDS: Dibucaine 1% 28 GM TUBE TP (08:51)
--- NOTE | 2023-03-16 09:06 | W.PM.OBPNV1 ---
Date of service: 03/16/23 Time of Service: 08:00 Assessment and Plan Assessment and plan (1) care following vaginal delivery: Status: Acute Assessment and plan: 1. Normal PP course, will discharge to home after Varicella vaccine due to VZV non immune 2. Discharge instructions reviewed, discussed PPD and importance of her reaching out to her prescribing provider / psych provider to inform that baby has been delivered and arrange for any follow up. Discussed signs of blues, PPD and PP psychosis and how to receive care. 3. Will RTO in 2 and 6 weeks or prn for PP evaluation. She is aware to call for any concerns outside of those visits, declines need for early visit. Cherie has good supports and provider to help with any mood changes and feels she has a good management plan. (2) Lactating mother: Status: Acute Assessment and plan: 1. Continue present management and will follow up with Pediatric providers for weight checks and assessment as scheduled 2. Encouraged report of any medication changes to pediatrics while breast feeding. 3. Reviewed signs of mastitis and when to call. Subjective Subjective Interval history: Cherie is feeling well. Is looking forward to discharge to home. Feels breast feeding is going very well. Denies pain or heavy bleeding. Patient's Mood: happy [place] baby status: Doing well, Nursing well and Rooming in feeding status: Exclusively breast feeding Exam Physical Exam Vital signs: Temp Pulse Resp BP 98.1 F 77 16 107/68 03/16/23 03:05 03/16/23 03:05 03/15/23 12:15 03/16/23 03:05 Vital Signs Reviewed: Yes Constitutional Constitutional: no acute distress, average body habitus and cooperative HEENT Exam HEENT Exam: Normal Neck Exam Neck Exam: Normal (normal visual inspection) Respiratory Exam Respiratory Exam: Normal Cardiovascular Exam Cardiovascular Exam: Normal Abdominal Exam Abdomen: Other (normal exam) Fundal Exam Fundus: Below Umbilicus and Firm Comment: small lochia noted. Rectal Exam Rectal Exam: Not Done Exam Perineum: Intact, Normal and Repair Intact Extremities Exam Extremity Exam: Normal (denies calf tenderness) and Full ROM Back/Spine/Pelvis Exam Back Exam: Normal Skin Exam Skin Exam: Normal Neurological Exam Neurological Exam: Normal Psychiatric Exam Psychiatric Exam: Normal Results Hemoglobin/Hematocrit: Hgb 12.6 g/dL (11.2-15.7) 03/14/23 14:37 Hct 36.3 % (36.0-46.0) 03/14/23 14:37 Abnormal Lab Findings: Abnormal Labs 03/14/23 14:37 WBC 12.71 H MPV 12.6 H
--- NOTE | 2023-03-16 09:14 | W.PM.OBDISCH ---
Date of service: 03/16/23 Time of Service: 09:14 DS: Diagnosis Discharge Diagnosis (1) care following vaginal delivery: Status: Acute Asessment and Plan: 1. Normal PP course, will discharge to home after Varicella vaccine due to VZV non immune 2. Discharge instructions reviewed, discussed PPD and importance of her reaching out to her prescribing provider / psych provider to inform that baby has been delivered and arrange for any follow up. Discussed signs of blues, PPD and PP psychosis and how to receive care. 3. Will RTO in 2 and 6 weeks or prn for PP evaluation. She is aware to call for any concerns outside of those visits, declines need for early visit. Cherie has good supports and provider to help with any mood changes and feels she has a good management plan. (2) Lactating mother: Status: Acute Asessment and Plan: 1. continue present management and follow up with pediatric provider as scheduled 2. to call with concerns related to breast feeding or prn. Discharge Plan Disposition Patient Disposition: Home Condition: Good Discharge Details Reason For Visit: Labor Admit Date/Time: 03/14/23 14:37 Admit Provider: Elva Johnson Attending Provider: Elva Johnson Primary Care Provider: Mercedes Munguia Hospital Course Hospital Course: Normal labor and then NVD of live male infant over intact perineum and 1st degree right labial laceration. Normal PP course to date. Breast feeding well established. Home Meds and New Rx's Prescriptions: Continued sertraline 100 mg tablet 50 mg PO DAILY lamotrigine 100 mg tablet 50 mg PO DAILY prenat.vits,marcia,[id number] Tablet 1 tab PO DAILY Zyrtec 10 mg capsule 10 mg PO DAILY PRN (Reason: allergy symptoms) pantoprazole [Protonix] 40 mg tablet,delayed release (DR/EC) 40 mg PO DAILY Qty: 30 1RF Discharge Instructions Instructions: Depression (GEN) Stand Alone Forms: BC Instructions, BC Post Vaginal Deliver Activity:: Activity as Tolerated Equipment/Supplies:: No Equipment Needed Diet:: As Tolerated Discharge Orders Discharge Orders: Discharge Order (Routine); Ordered 03/16/23 Ordered By: Elva Johnson OB:DS Summary Summary Vaginal Delivery Method: Spontaneaous Laceration Extension: First Degree Contraception Discussed Contraception Discussed: Yes Contraceptive Plan: Foam/Condoms, [place] Infant Gender-Baby A: Male weight: 8 lb 5 oz Disposition of Baby A: Home Status at Discharge Functional status at discharge: independent ambulation Overall status at discharge: patient is back to baseline Mental Status: mental status grossly normal Speech and Movement: speech and movement normal Mood: congruent mood Affect: normal affect Time Spent with Patient providing and/or coordinating discharge services: Less than 30 minutes Hospital Course normal labor and and period. Exam Physical Exam Vital signs: Temp Pulse Resp BP 98.1 F 77 16 107/68 03/16/23 03:05 03/16/23 03:05 03/15/23 12:15 03/16/23 03:05 Vital Signs Reviewed: Yes Constitutional Constitutional: no acute distress, average body habitus and cooperative HEENT Exam HEENT Exam: Normal Neck Exam Neck Exam: Normal (normal visual inspection) Respiratory Exam Respiratory Exam: Normal Cardiovascular Exam Cardiovascular Exam: Normal Abdominal Exam Abdomen: Other (normal exam) Fundal Exam Fundus: Below Umbilicus and Firm Comment: small lochia noted. Rectal Exam Rectal Exam: Not Done Exam Perineum: Intact, Normal and Repair Intact Extremities Exam Extremity Exam: Normal (denies calf tenderness) and Full ROM Back/Spine/Pelvis Exam Back Exam: Normal Skin Exam Skin Exam: Normal Neurological Exam Neurological Exam: Normal Psychiatric Exam Psychiatric Exam: Normal PFSH All Active Problems (Updated 03/16/23 @ 09:08 by Elva Johnson CNM) Lactating mother (Acute) care following vaginal delivery (Acute) Normal labor (Acute) Maternal varicella, non-immune (Acute) Anxiety (Chronic) (Acute) Depression (Chronic) Misdiagnosed as bipolar. has psychiatrist prescriber. Bonita Freitas Medical History Bipolar 1 disorder Left lower quadrant abdominal pain affecting in first trimester Overweight (BMI 25.0-29.9) Suprapubic discomfort Uncertain lie of fetus Family History Mother Colon polyps Thyroid condition Father , 38 Epilepsy Brother No problems noted. Maternal Grandfather , 60'S Cancer Brain cancer Maternal Grandmother Depression Paternal Grandmother Depression Anxiety Maternal Aunt Breast cancer Paternal Grandfather Heart disease Paternal Aunt PKU (phenylketonuria) Social History Smoking/Tobacco Use Status: Never Second Hand Exposure: No Smoking risk assessment performed?: Yes Alcohol Intake: current Alcohol Intake frequency: a few times a week Alcohol type: beer, wine and hard liquor Counseling given: Yes Details: recommended max of 1 beer/day. Decrease ETOH content in beer Drug use: Daily Substance use type: marijuana Details: not since for mj and alcohol Caregiver/Support person: No Household members: spouse Housing: house Number of Children: 0 Communication Needs: Hard of Hearing Education Level: college Details: [employer] Do you need help understanding health information?: Rarely current occupation: currently not employed. working on their house (); Pets and animals: Yes Pets and animals: dog(s) Sexually active: Yes Do you think of yourself as: bisexual Current gender identity: female What is your relationship status?: How often do you talk on the phone with friends or family?: three or more times per week How often do you get together with friends or relatives?: twice per week How often do you attend samaritan or latter day services?: 1-3 times per year Do you belong to any clubs or organized social groups?: no Panel score (0-1 are the most socially isolated patients): 2 What type of physical activity do you participate in: walking, bicycling and weight lifting Duration: 45-60 minutes/day Frequency: 3-4 times per week Hermila/Bahai: None Special hermila needs: No Seatbelt use: always Helmet use: Yes Helmet use: always Drive intox or ride w/intox sales driver: No Do you feel safe at home: Yes Do you feel safe in your relationship?: Yes Female Reproductive History Menstrual control method: progestin IUCD (mirena 2019) History History 1 Para 0 Hx # Term Pregnancies 0 Multiple births 0 Hx # Pregnancies 0 Ectopic pregnancies 0 AB induced 0 Hx Number of Living Children 0 AB spontaneous 0 DS: Data Vitals/I&O Vitals and I&O: Vital Signs Temperature 98.1 F 03/16/23 03:05 Temperature 98.1 F 03/14/23 18:49 Temperature Source Oral 03/16/23 03:05 Pulse 77 03/16/23 03:05 Pulse 67 03/14/23 18:49 Pulse Rhythm Regular 03/15/23 20:02 Respiratory Rate 16 03/15/23 12:15 Respiratory Depth Normal 03/15/23 20:02 Blood Pressure 107/68 03/16/23 03:05 Blood Pressure 126/76 03/14/23 18:49 Blood Pressure Mean 81 03/16/23 03:05 Oxygen Delivery Method Room Air 03/14/23 15:20 Oxygen Flow Rate 0 03/14/23 15:20 Pain Level 4 03/15/23 07:26 Comment taken during contraction, will retake 03/14/23 16:20 Intake & Output 03/15/23 03/15/23 03/16/23 11:59 23:59 11:59 Intake Total 1000 / 1500 500 / 1500 Output Total 250 / 1300 1050 / 1300 Balance 750 / 200 -550 / 200 Intake: IV 1000 / 1500 500 / 1500 Output: Urine 250 / 1300 1050 / 1300
[2023-03-16] MEDS: Varicella Virus Vaccine (Live) 0.5 ML SC (10:08)
== END 2023-03-16 14:00 | disposition home or self-care (01) | DRG 807 ==
LOC: OBS 03-15 08:43 → BCD 03-16 09:27
PROVIDERS: Admitting Provider Advanced Practice Midwife; PCP Family Medicine; Visit Provider Advanced Practice Midwife
DX: O99.344 Other mental disorders complicating childbirth (principal); Z37.0 Single live birth; Z3A.40 40 weeks gestation of pregnancy; O70.0 First degree perineal laceration during delivery; O77.0 Labor and delivery complicated by meconium in amniotic fluid; O69.81X0 Labor and delivery complicated by cord around neck, without compression, not applicable or unspecified; F31.9 Bipolar disorder, unspecified
CPT/HCPCS: 85027; 86850; 86900; 86901; 87635; 59025; J2405; J3490

== ENCOUNTER 2024-06-05 11:25 | Emergency (ER) | payer OTHER, SELFPAY ==
[2024-06-05 11:29] VITALS: BP 120/70; PULSE 87; RESP 16; TEMP 36.9; O2SAT 98
--- NOTE | 2024-06-05 11:44 | ED.GENADUL_ITS ---
Discharge Plan Disposition Patient Disposition: Home Condition: Stable Discharge Details Clinical Impression: Need for post exposure prophylaxis for rabies Primary Care Provider: Mercedes Munguia ED Provider: Emory Enamorado Home Meds and New Rx's Prescriptions: No Action sertraline 100 mg tablet 50 mg PO DAILY lamotrigine 100 mg tablet 50 mg PO DAILY prenat.vits,marcia,[id number] Tablet 1 tab PO DAILY ferrous sulfate 325 mg (65 mg iron) tablet 325 mg PO DAILY Qty: 90 4RF cholecalciferol (vitamin D3) [Vitamin D3] 10 mcg (400 unit) tablet,chewable 10 mcg PO DAILY docusate sodium 100 mg capsule 100 mg PO DAILY Zyrtec 10 mg capsule 10 mg PO DAILY PRN (Reason: allergy symptoms) Discharge Instructions Instructions: Rabies, Rabies Immune Globulin (Human), Rabies Vaccine Additional Instructions: You were seen in the emergency department for your bat exposure with possible bite, bats teeth are too small to be noticed on the skin usually so we need to initiate rabies postexposure prophylaxis with rabies immunoglobulin as well as a 4 shot rabies vaccine series. Today is day 0, I am filling out orders for you to receive the subsequent rabies shots on day 3-Tuesday, June 08, day 7-Tuesday, June 12, day 14-Tuesday, June 19. The subsequent [facility]. Please take any Tylenol and ibuprofen as needed for any body aches or chills from the vaccines administered today-return to ED with profound lethargy, chest pain, respiratory distress, diffuse hives, any oral swelling. Referrals: Mercedes Munguia MD [Primary Care Provider] - Discharge Data Discharge Date/Time-TO BE ENTERED AT DEPARTURE: 06/05/24 12:53 HPI General Date/Time Provider Initiated Documentation: 06/05/24 11:28 . HPI Narrative: [ ] year-old [ ] presents to ED today by POV/ambulating with a chief complaint of awoken with a bat in bedroom with onset this morning- denies any known bite, but cannot be sure. Quality described as no pain anywhere, no radiation to skin changes, itching, bleeding, bruising. Severity is described as 0/10. Palliating factors include nothing specific. Provoking factors include nothing specific. Events leading up to the incident/Associated Symptoms: Patient is naive to rabies vaccine. Patient not anticoagulated. Related Data Home Medications ?Medication ?Instructions ?Recorded ?Confirmed prenat.vits,marcia,wkz-gmck-dexse 1 tab PO DAILY 07/27/22 06/05/24 sertraline 100 mg tablet 50 mg PO DAILY 08/16/22 06/05/24 lamotrigine 100 mg tablet 50 mg PO DAILY 09/20/22 06/05/24 cetirizine 10 mg capsule (Zyrtec) 10 mg PO DAILY PRN allergy symptoms 01/06/23 06/05/24 ferrous sulfate 325 mg (65 mg 325 mg PO DAILY #90 tabs 04/21/23 06/05/24 iron) tablet cholecalciferol (vitamin D3) 10 10 mcg PO DAILY 06/17/23 06/05/24 mcg (400 unit) chewable tablet (Vitamin D3) docusate sodium 100 mg capsule 100 mg PO DAILY 06/17/23 06/05/24 Previous Rx's ?Medication ?Instructions ?Recorded ferrous sulfate 325 mg (65 mg 325 mg PO DAILY #90 tabs 04/21/23 iron) tablet Allergies Allergy/AdvReac Type Severity Reaction Status Date / Time Environmental Allergies Allergy Uncoded 06/17/23 09:33 General Stated Complaint: Patient Exposure Risk NANCI: 4 Review of Systems All systems reviewed & are unremarkable except as noted in HPI and below Exam Narrative Exam Narrative: GENERAL APPEARANCE: Well-nourished, non-toxic, awake and alert, atraumatic, no acute distress. SKIN: Warm, pink, dry, intact, without rashes/lesions/ulcerations. HEAD: Normocephalic, atraumatic, normal hair distribution for gender/age. EYES: Normal conjunctiva, no exudates on lids/lashes. ENT: Nares patent, no circumoral cyanosis, no facial swelling NECK: Supple, trachea midline, painless cervical ROM. LUNGS/CHEST: Non-labored respirations, normal A/P diameter, symmetrical expansion, no chest wall deformity HEART (CV/PV): No peripheral edema, no JVD. ABDOMEN: Soft, non-distended, no guarding. MSK: Normal ROM, no swelling/deformity to bilateral UEs or LEs, moving all extremities without weakness, no cyanosis, spine midline without tenderness, normal curvature. NEURO: Mental Status AAOx4 - alert to person, place, time, events No facial droop, no forehead involvement. Motor: No focal weakness - strength 5/5 in bilateral UEs and LEs, proximal and distal, symmetric. Sensory: sensation intact to light touch globally. Gait normal: patient ambulated without ataxia into ED room. PSYCH: euthymic, cooperative, pleasant, appropriate speech Course Vital Signs Vital signs: Vital Signs Temperature 36.9 C 06/05/24 11:29 Pulse 87 06/05/24 11:29 Respiratory Rate 16 06/05/24 11:29 Blood Pressure 120/70 06/05/24 11:29 Pulse Oximetry 98 06/05/24 11:29 Temperature 36.9 C 06/05/24 11:29 Pulse 87 06/05/24 11:29 Respiratory Rate 16 06/05/24 11:29 Blood Pressure 120/70 06/05/24 11:29 Blood Pressure Position Sitting 06/05/24 11:29 Pulse Oximetry 98 06/05/24 11:29 Oxygen Delivery Method Room Air 06/05/24 11:29 Oxygen Flow Rate 0 06/05/24 11:29 Pain Level 0 06/05/24 11:29 Medical Decision Making This dictation utilizes [id number] dictation software and may contain unedited grammatical errors. 28 year-old F presents to ED today by POV/ambulating with a chief complaint of awoken with a bat in bedroom with onset this morning- denies any known bite, but cannot be sure. Quality described as no pain anywhere, no radiation to skin changes, itching, bleeding, bruising. Severity is described as 0/10. Palliating factors include nothing specific. Provoking factors include nothing specific. Events leading up to the incident/Associated Symptoms: Patient is naive to rabies vaccine. Patient not anticoagulated. Patients' medical history: Noncontributory. Family and social history: Noncontributory. Pertinent exam findings / vital signs include benign cardiopulmonary exam, no evidence of bat bite. Differential / pathologies of concern include need for rabies prophylaxis. Diagnostic studies of: -None. Interventions of: -RIG, rabies vaccine series shot 1. ED Course/Assessment/Plan: 28 y/o F presents for need for postexposure prophylaxis for rabies due to being awoken by a bat in their bedroom. Patient has not had prior rabies vaccination series, given rabies immunoglobulin and first series of rabies shot as well as ordered remaining shots to be given in infusion center. Counseled on Tylenol and ibuprofen for any side effects of vaccine, strict return criteria for any signs of serious allergic reaction like throat swelling, multisystem complaints. Findings not consistent with active rabies. Disposition of need for postexposure prophylaxis for rabies. Patient verbalized understanding of the plan and return to ED criteria and engaged in shared decision making. Medical Records Medical records reviewed: Yes I reviewed the patient's medical records. Quality:[facility] Health Related Social Needs: No Data to Display [facility] All Active Problems (Updated 06/05/24 @ 12:09 by BRYSON Levi) Need for post exposure prophylaxis for rabies (Acute) Anemia (Chronic) Lactating mother (Acute) Depression (Chronic) Misdiagnosed as bipolar. has psychiatrist prescriber. Bonita Lewis Harbeson Medical History (Updated 06/05/24 @ 12:09 by BRYSON Levi) Maternal varicella, non-immune Anxiety Bipolar 1 disorder Family History Mother Colon polyps Thyroid condition Father , 38 Epilepsy Brother No problems noted. Maternal Grandfather , 60'S Cancer Brain cancer Maternal Grandmother Depression Paternal Grandmother Depression Anxiety Maternal Aunt Breast cancer Paternal Grandfather Heart disease Paternal Aunt PKU (phenylketonuria) Social History (Updated 06/20/23 @ 09:17 by Verenice Okeefe) Smoking/Tobacco Use Status: Never Second Hand Exposure: No Smoking risk assessment performed?: Yes Alcohol Intake: current Alcohol Intake frequency: a few times a week Alcohol type: beer, wine and hard liquor Counseling given: Yes Details: recommended max of 1 beer/day. Decrease ETOH content in beer Drug use: Socially Substance use type: marijuana Details: not since for mj and alcohol Caregiver/Support person: No Household members: spouse Housing: house Number of Children: 1 Communication Needs: None Education Level: college Details: [employer]. Do you need help understanding health information?: Rarely current occupation: currently not employed. working on their house (s); Pets and animals: Yes Pets and animals: dog(s) Sexually active: Yes Do you think of yourself as: bisexual Current gender identity: female What is your relationship status?: How often do you talk on the phone with friends or family?: twice per week How often do you get together with friends or relatives?: three or more times per week Do you belong to any clubs or organized social groups?: yes Panel score (0-1 are the most socially isolated patients): 3 What type of physical activity do you participate in: walking and other Details: Gardening,Skiing Duration: 15-30 minutes/day Frequency: 3-4 times per week Hermila/Restorationist: No preference Special hermila needs: No Seatbelt use: always Helmet use: Yes Helmet use: always Drive intox or ride w/intox special events driver: No Do you feel safe at home: Yes Do you feel safe in your relationship?: Yes Female Reproductive History Menstrual control method: progestin IUCD (mirena 2018) History History 1 Para 1 Hx # Term Pregnancies 1 Multiple births 0 Hx # Pregnancies 0 Ectopic pregnancies 0 AB induced 0 Hx Number of Living Children 1 AB spontaneous 0 Past Pregnancies Del. Date GA/Weeks # Preg Succ Route Wgt Sex Labor Lgth Anesth esia Location [facility] 03/15/23 40 No Yes vaginal 3770.487 g Male 20hrs 12min DESTINY Sanchez Delivery Date: 03/15/23 Last Updated by: ERNST Gaines; 1st degree labial laceration repair
[2024-06-05] MEDS: Rabies Immune Globulin 1,500 UNIT/5 ML VIAL 1360.78 UNITS IM (12:49)
[2024-06-05] MEDS: Rabies vaccine (PCEC)/PF 2.5 UNITS/ML VIAL IM (12:50)
== END 2024-06-05 12:53 | disposition home or self-care (01) ==
LOC: ER 13:28
PROVIDERS: Emergency Provider Physician Assistant; PCP Family Medicine
DX: Z20.3 Contact with and (suspected) exposure to rabies (principal); Z23 Encounter for immunization
CPT/HCPCS: 90375; 90471; 96372; 99284; 90675; 99283

== ENCOUNTER 2024-06-19 03:07 | Outpatient (RCR) | payer OTHER, SELFPAY ==
[2024-06-08] MEDS: Rabies vaccine (PCEC)/PF 2.5 UNITS/ML VIAL IM (14:13)
[2024-06-12] MEDS: Rabies vaccine (PCEC)/PF 2.5 UNITS/ML VIAL IM (09:32)
== END 2024-06-20 23:59 | disposition home or self-care (01) ==
LOC: INF 03:07
PROVIDERS: PCP Family Medicine; Visit Provider Physician Assistant
DX: Z20.3 Contact with and (suspected) exposure to rabies (principal)
CPT/HCPCS: 90471; 96372; 90675

== ENCOUNTER 2024-06-22 09:43 | Outpatient (RCR) | payer OTHER, SELFPAY ==
[2024-06-22] MEDS: Rabies vaccine (PCEC)/PF 2.5 UNITS/ML VIAL IM (11:45)
== END 2024-07-21 23:59 | disposition home or self-care (01) ==
LOC: INF 09:43
PROVIDERS: PCP Family Medicine; Visit Provider Physician Assistant
DX: Z29.14 Encounter for prophylactic rabies immune globulin (principal)
CPT/HCPCS: 96372; 90675

== ENCOUNTER 2024-11-06 03:04 | Outpatient (CLI) | payer OTHER, SELFPAY ==
[2024-11-06 12:00] LABS: Panorama Kit Sent via Fed Ex
[2024-11-06 12:16] LABS: Abs Immature Grans 0.03 10^3/uL (0.0-0.06); Absolute Basophil Count 0.02 10^3/uL (0.0-0.2); Absolute Eosinophil Count 0.27 10^3/uL (0.0-0.7); Absolute Lymphocyte Count 2.21 10^3/uL (1.2-3.4); Absolute Monocyte Count 0.58 10^3/uL (0.1-0.8); Absolute Neutrophil Count 5.69 10^3/uL (1.2-6.7); Basophils % 0.2 %; Eosinophils % 3.1 %; HCT 39.6 % (36.0-46.0); HGB 13.5 g/dL (11.2-15.7); Immature Grans % 0.3 %; Lymphocytes % 25.1 %; MCH 30.1 pg (27.0-33.0); MCHC 34.1 % (32.0-36.0); MCV 88 fL (80-95); Monocytes % 6.6 %; Neutrophils % 64.7 %; Platelet Count 240 10^3/uL (130-400); RBC 4.48 10^6/uL (3.93-5.22); RDW 11.8 % (11.7-14.6)
[2024-11-06 23:15] LABS: Hepatitis B Surface Ag Negative (Negative)
[2024-11-06 23:48] LABS: Hepatitis C Ab w Rflx HCV PCR Negative (Negative)
[2024-11-06 23:50] LABS: HIV-1/2 Ag & Ab Screen Negative (Negative)
[2024-11-07 10:51] LABS: Rubella IgG Ab (UVM) Positive (See Note)
[2024-11-07 10:57] LABS: Varicella IgG Antibody Positive (See Note)
[2024-11-08 21:05] LABS: Syphilis IgG w/Reflex Nonreactive (Nonreactive)
== END 2024-11-06 03:05 | disposition home or self-care (01) ==
LOC: LBO 03:04
PROVIDERS: PCP Family Medicine; Visit Provider Advanced Practice Midwife
DX: Z34.91 Encounter for supervision of normal pregnancy, unspecified, first trimester (principal)
CPT/HCPCS: 36415; 86787; 86803; 86850; 86900; 86901; 87340; 87389; 85025; 86762; 86780

== ENCOUNTER 2024-11-06 10:57 | Outpatient (REF) | payer OTHER, SELFPAY ==
[2024-11-06 14:24] LABS: *AMPHETAMINES SCREEN URINE Negative (Negative); *BARBITURATES SCREEN URINE Negative (Negative); *BENZODIAZEPINES SCREEN URINE Negative (Negative); Cannabinoids THC Negative (Negative); Cocaine Screen,Urine Negative (Negative); METHADONE URINE SCREEN Negative (Negative); OPIATES URINE SCREEN Negative (Negative)
[2024-11-06 14:25] LABS: Tricyclic Antidepressants Negative (Negative)
[2024-11-07 11:44] LABS: Fentanyl Scr w/Rfx Confirm Negative ng/mL (<1)
[2024-11-07 12:11] LABS: Chlamydia Result Negative (Negative); GC Result Negative (Negative)
[2024-11-10 16:20] LABS: Buprenorphine Negative ng/mL (Cutoff: 5.0); Norbuprenorphine Negative ng/mL (Cutoff: 2.5)
== END 2024-11-06 10:58 | disposition home or self-care (01) ==
LOC: LBN 10:57
PROVIDERS: PCP Family Medicine; Visit Provider Advanced Practice Midwife
DX: F12.90 Cannabis use, unspecified, uncomplicated (principal); Z34.91 Encounter for supervision of normal pregnancy, unspecified, first trimester
CPT/HCPCS: 80307; 80348; 87491; 87591; 87086; 87480; 87510; 87660

== ENCOUNTER 2025-02-27 02:02 | Outpatient (CLI) | payer BC, SELFPAY ==
[2025-02-27 10:35] LABS: HCT 36.9 % (36.0-46.0); HGB 12.2 g/dL (11.2-15.7); MCH 30.2 pg (27.0-33.0); MCHC 33.1 % (32.0-36.0); MCV 91 fL (80-95); MPV 10.7 fL (8.0-11.0); Platelet Count 191 10^3/uL (130-400); RBC 4.04 10^6/uL (3.93-5.22); RDW 13.2 % (11.7-14.6); RDW-SD 44.5 fL; WBC 7.32 10^3/uL (4.4-10.8)
[2025-02-27 10:52] LABS: Glucose,1 Hr (Glucola) 61 mg/dL (80-140)
== END 2025-02-27 02:03 | disposition home or self-care (01) ==
LOC: LBO 02:02
PROVIDERS: PCP Family Medicine; Visit Provider Advanced Practice Midwife
DX: Z34.92 Encounter for supervision of normal pregnancy, unspecified, second trimester
CPT/HCPCS: 36415; 82950; 85027

== ENCOUNTER 2025-02-27 09:44 | Outpatient (REF) | payer BC, SELFPAY ==
[2025-02-27 11:22] LABS: *AMPHETAMINES SCREEN URINE Negative (Negative); *BARBITURATES SCREEN URINE Negative (Negative); *BENZODIAZEPINES SCREEN URINE Negative (Negative); Cannabinoids THC Negative (Negative); Cocaine Screen,Urine Negative (Negative); METHADONE URINE SCREEN Negative (Negative); OPIATES URINE SCREEN Negative (Negative)
[2025-02-27 11:24] LABS: Tricyclic Antidepressants Negative (Negative)
[2025-02-28 12:11] LABS: Fentanyl Scr w/Rfx Confirm Negative ng/mL (<1)
[2025-03-06 12:26] LABS: Buprenorphine Negative ng/mL (Cutoff: 5.0); Norbuprenorphine Negative ng/mL (Cutoff: 2.5)
== END 2025-02-27 09:45 | disposition home or self-care (01) ==
LOC: LBN 09:44
PROVIDERS: PCP Family Medicine; Visit Provider Advanced Practice Midwife
DX: Z34.92 Encounter for supervision of normal pregnancy, unspecified, second trimester (principal)
CPT/HCPCS: 80307; 80348

== ENCOUNTER 2025-04-04 10:18 | Outpatient (CLI) | payer BC, SELFPAY ==
--- NOTE | 2025-04-04 | DI.US_ITS ---
Exam(s) US OB ELIZABETH WEIGHT EXAM: US OB ELIZABETH WEIGHT CLINICAL HISTORY: size less than dates. TECHNIQUE: Transabdominal obstetrical ultrasound was performed. COMPARISON: US US OB 2-3 TRIMESTER from 01/02/2025 FINDINGS: There is a single viable intrauterine gestation with cardiac activity [id number] bpm The fetus is presently in cephalic position . Amniotic fluid: There is a normal amount of amniotic fluid with an ELIZABETH of 21.6cm. Placental location: The placenta is anterior grade 2,with no evidence of placenta previa. Dating parameters place this at approximately 33 weeks and 2 days gestational age, implying NBA of 05/21/2025. BPD measures 32 weeks and 6 days HC measures 32 weeks and 6 days AC measures 34 weeks and 1 day FL measures 33 weeks and 0 days Estimated weight is 2231 gm-4 pounds 15 ounces Fetus is at the 51st percentile on the Hadlock scale. IMPRESSION:: Viable 3rd trimester gestation, as described above. DATA REPOSITORY:
[2025-04-04 10:54] VITALS: BP 116/60; PULSE 90; TEMP 36.6
[2025-04-04 11:07] VITALS: BP 116/60; PULSE 90
--- NOTE | 2025-04-04 16:58 | W.OBNST ---
Date of service: 04/04/25 Time of Service: 16:58 NST Evaluation Reason for NST Reasons for Nonstress Test: DECREASED MOVEMENT Gestational Age Gestational Age in Weeks and Days: 33 Weeks and 2Days Test and Monitor Explained Test/Monitor Explained: Test Explained, Monitor Explained and Patient Verbalized Understanding Vital Signs Blood Pressure: 116/60 Pulse: 90 Temperature: 97.9 F NST Information Date on Monitor: 04/04/25 Time on Monitor: 10:12 NST Interventions: PO Hydration NST Evaluation Patient States Movement: Absent FHR Baseline: 145 Variability: Moderate 6-25 bpm Accelerations: 15x15 Note Ultrasound Done: N/A. NST Note Note: Cherie called and reported decreased movement today. She was very upset about this. Reactive NST, uterine irritability noted. Fundal height measured and less than dates and US for growth and ELIZABETH ordered. Normal ELIZABETH and EFW noted on US today at . Cherie recorded 8 tovar for movement during monitoring. movement heard on the monitor. Vertex very low by Shyann. Reviewed kick counting. She was reassured and she was encouraged to call tomorrow if she again notices decreased movement. Follow up at [facility] for visit. NST Reviewed and Verified by: Elva Marquis
[2025-04-04 17:01] VITALS: BP 116/60; PULSE 90; TEMP 36.6
== END 2025-04-04 14:45 ==
LOC: BCD 10:34 → OBS 10:53
PROVIDERS: PCP Family Medicine; Visit Provider Advanced Practice Midwife
DX: O36.8131 Decreased fetal movements, third trimester, fetus 1 (principal); Z3A.33 33 weeks gestation of pregnancy
CPT/HCPCS: 76816; 59025

== ENCOUNTER 2025-04-05 20:41 | Observation (INO) | payer BC, SELFPAY ==
[2025-04-05 19:58] VITALS: BP 119/64; PULSE 98; RESP 16; TEMP 36.7; O2SAT 98
[2025-04-05 20:10] VITALS: BP 119/64; PULSE 98; TEMP 36.7
--- NOTE | 2025-04-05 20:38 | HPE_ITS ---
Date of service: 04/05/25 Time of Service: 20:38 Assessment and Plan Assessment and plan (1) 33 weeks gestation of : Status: Acute (2) labor in third trimester: Status: Acute Assessment and plan: A: 29 wk @ 33+3 wks, labor with cvx @ 3-4/80%, posterior, intact, vtx -1 VPS, GBS, GC/CT, UDS and UA collected, CBC and T&S drawn POCUS confirms cephalic presentation and adequate appearing ELIZABETH P: Dr. Mccracken notified of pt status IV initiated for LR, nifedipine 20 mg PO, celestone 12 mg IM [facility] Joseph accepting transfer, [place] on their way Reviewed medications with Dr. Joseph, no additional orders received Will do VE to assess for cvx change prior to leaving the unit OB-HPI Labor/Delivery History of Present Illness Reason for Visit: NST Chief Complaint: Uterine Contractions (began timing contractins at 1830, they were 3 minutes apart so she called and arrived to unit at 1958). NBA Calculator Estimated Delivery Date Method Current WG Current Estimate 05/21/25 Ultrasound #1 33w 3d Other Estimates 05/19/25 LMP (Uncertain) 33w 5d History of Present Expected Delivery Route/Plan - CNM FOB Keo Faria- (second baby together) BG Open to all pain meds, prioritize non-epidural, used nitrous in past Specific Issues/Plan 1. SMA and CF previously negative - CfDNA- low risk 2. 5-Ps positive THC prior to - UDS neg 3. Depression - current family stress - referral to [facility], will f/up 4. Last pap 08/2022- repeat PP 5, Exposure to shingles- touched the lesions and washed her hands. Varicella IGM offered 2 weeks after exposure____ Assessment: History Reviewed & Current Review of Systems Narrative: ROS noncontributory other than HPI PFSH All Active Problems (Updated 04/05/25 @ 21:26 by Sondra Guajardo) labor in third trimester (Acute) 33 weeks gestation of (Acute) Teratogen exposure in current , single gestation (Acute) (Acute) Anemia (Chronic) Depression (Chronic) Misdiagnosed as bipolar. has psychiatrist prescriber. Bonita Freitas Medical History (Updated 04/05/25 @ 21:26 by Sondra Guajardo) Marijuana use quit with Maternal varicella, non-immune Anxiety Bipolar 1 disorder Family History Mother Colon polyps Thyroid condition Father , 38 Epilepsy Brother No problems noted. Maternal Grandfather , 60'S Cancer Brain cancer Maternal Grandmother Depression Paternal Grandmother Depression Anxiety Maternal Aunt Breast cancer Paternal Grandfather Heart disease Paternal Aunt PKU (phenylketonuria) Social History Smoking/Tobacco Use Status: Never Second Hand Exposure: No Smoking risk assessment performed?: Yes Alcohol Intake: current Alcohol Intake frequency: 0-2 drinks per day Alcohol type: beer and wine Counseling given: Yes Details: recommended max of 1 beer/day. Decrease ETOH content in beer Drug use: Socially Substance use type: marijuana Details: not since for mj and alcohol Adopted: No Caregiver/Support person: No Household members: spouse and children Housing: house Number of Children: 1 number of grandchildren: 0 Communication Needs: None Education Level: college Details: [employer]. 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 Pets and animals: Yes Pets and animals: dog(s) Sexually active: Yes Do you think of yourself as: bisexual Current gender identity: female What is your relationship status?: How often do you talk on the phone with friends or family?: twice per week How often do you get together with friends or relatives?: twice per week Do you belong to any clubs or organized social groups?: yes Panel score (0-1 are the most socially isolated patients): 3 What type of physical activity do you participate in: walking, bicycling and other Details: Gardening,Skiing, chasing a toddler around the house everyday Duration: 30-45 minutes/day Frequency: daily Hermila/Pentecostalism: No preference Special hermila needs: No Seatbelt use: always Helmet use: Yes Helmet use: always Drive intox or ride w/intox school boat driver: No Firearms in home: No Do you feel safe at home: Yes Do you feel safe in your relationship?: Yes Victim of physical abuse: No Victim of emotional abuse: No Victim of sexual abuse: No Would you like helpful sources: No Female Reproductive History Menstrual control method: progestin IUCD History History 2 Para 1 Hx # Term Pregnancies 1 Multiple births 0 Hx # Pregnancies 0 Ectopic pregnancies 0 AB induced 0 Hx Number of Living Children 1 AB spontaneous 0 Past Pregnancies Del. Date GA/Weeks # Preg Succ Route Wgt Sex Labor Lgth Anesth esia Location Prov Complic 03/15/23 40 No Yes vaginal 8 lb 5 oz Male 20hrs 12min DESTINY Sanchez Delivery Date: 03/15/23 Last Updated by: Zofia Plaza, ERNST Moe; 1st degree labial laceration repair Meds Allergies and Home Medications Allergies Allergy/AdvReac Type Severity Reaction Status Date / Time Environmental Allergies Allergy sneezing Uncoded 04/01/25 10:09 Home Medications ?Medication ?Instructions ?Recorded ?Confirmed ?Type cetirizine 10 mg capsule (Zyrtec) 10 mg PO DAILY PRN allergy symptoms 01/06/23 04/01/25 History vitamin no.180-ferrous 1 tab PO DAILY #90 tabs 09/14/24 04/01/25 Rx fumarate 27 mg-folic acid 1 mg tablet ( Plus Vitamin-Mineral) melatonin 5 mg tablet 5 mg PO HS PRN 11/06/24 04/01/25 History bupropion HCl 150 mg 24 hr tablet, 150 mg PO DAILY #90 tabs 01/23/25 04/01/25 Rx extended release lamotrigine 100 mg tablet 50 mg (1/2 x 100 mg) PO DAILY #90 01/23/25 04/01/25 Rx tabs sertraline 100 mg tablet 50 mg (1/2 x 100 mg) PO DAILY #90 01/23/25 04/01/25 Rx tabs cholecalciferol (vitamin D3) 10 10 mcg PO DAILY PRN 04/01/25 04/01/25 History mcg (400 unit) chewable tablet (Vitamin D3) ferrous sulfate 325 mg (65 mg 325 mg PO DAILY PRN 04/01/25 History iron) tablet Exam Physical Exam Vital signs: Temp Pulse Resp BP Pulse Ox 98.1 F 98 H 16 119/64 98 04/05/25 19:58 04/05/25 19:58 04/05/25 19:58 04/05/25 19:58 04/05/25 19:58 Vital Signs Reviewed: Yes Constitutional Constitutional: mild distress, thin and cooperative Detailed Labor and Delivery Exam Dilation: 3.5 Effacement (%): 80 station: -1 Cervix position: posterior Amniotic Membrane Status: Intact Contraction Frequency(min): q 3 minutes Contraction Intensity: Mild Fetus A Heart Rate Baseline: 130 Monitor Accelerations: Present Monitor Decelerations: None Variability: Moderate (6-25 BPM) Categories: Category I HEENT Exam HEENT Exam: Normal Neck Exam Neck Exam: Normal Chest/Brest/Axilla Exam Chest Exam: Normal Breast Exam Breast Exam: Not Done Respiratory Exam Respiratory Exam: Normal Cardiovascular Exam Cardiovascular Exam: Normal Abdominal Exam Abdominal Exam: Normal (Gravid and soft) Rectal Exam Rectal Exam: Normal Exam Exam: Normal Extremities Exam Extremities Exam: Normal Back/Spine/Pelvis Exam Back Exam: Normal Pelvis Adequate: Yes Skin Exam Skin Exam: Normal Neurological Exam Neurological Exam: Normal Psychiatric Exam Psychiatric Exam: Normal Results Results Group Beta Strep: Done-Result Unknown Blood Type: A+ Rubella Status: Immune Varicella Immunity: Immune Risk Assessment Risk for Shoulder Dystocia Historical/Initial OB: NEGATIVE FOR: Pelvic Abnormality, Pre- BMI>30, Previous Shoulder Dystocia or Previous Macrosomia Risk for Pre-Eclampsia Yes, if one or more: NEGATIVE FOR: Hx Pre-E/Gest HTN, Chronic HTN, Multiple Gestation, Pre-gestational DM, Renal Disease, Systemic Lupus or APA Syndrome Yes, if 2 or more: NEGATIVE FOR: Nulliparity, Age>= 35 yrs, >10yr btwn pregnancies, BMI>30, ethinicty, Mother/Sister w/ Pre-E or Previous IUGR Risk for Post- Hemorrhage Initial: NEGATIVE FOR: Multiple Gestation, Previous PPH, Known Clotting Deficiency, Grand Multiparity or Anticoagulation Counseled re: Active Management: Yes Date/Initials: 03/14/23 [facility] Risks Reviewed Risks Reviewed Upon Admission: Yes
[2025-04-05] MEDS: Betamet Acet/Betamet Na Ph Inj. 30 MG/5 ML 12 MG IM (20:58)
[2025-04-05] MEDS: NIFEdipine 10 MG CAP 20 MG PO (20:58)
[2025-04-05 21:08] VITALS: BP 119/64; PULSE 98; TEMP 36.7
[2025-04-05 21:11] VITALS: BP 119/64; PULSE 98; RESP 16; TEMP 36.7
[2025-04-05] MEDS: Normal Saline Flush 10 ML SYR IVP (21:26)
[2025-04-05 21:32] LABS: HCT 30.2 % (36.0-46.0); HGB 10.6 g/dL (11.2-15.7); MCH 30.5 pg (27.0-33.0); MCHC 35.1 % (32.0-36.0); MCV 87 fL (80-95); MPV 11.3 fL (8.0-11.0); Platelet Count 180 10^3/uL (130-400); RBC 3.47 10^6/uL (3.93-5.22); RDW 13.1 % (11.7-14.6); RDW-SD 40.8 fL; WBC 17.31 10^3/uL (4.4-10.8)
--- NOTE | 2025-04-05 22:02 | DSE_ITS ---
Date of service: 04/05/25 Time of Service: 22:00 DS: Diagnosis Discharge Diagnosis (1) 33 weeks gestation of : Status: Acute (2) labor in third trimester: Status: Acute Discharge Plan Disposition Patient Disposition: Transfer-Acute Inpatient Care Specific Acute Inpt Facility: [facility] Condition: Fair Discharge Details Reason For Visit: NST Admit Date/Time: 04/05/25 20:41 Admit Provider: Sondra Guajardo Attending Provider: Sondra Guajardo Primary Care Provider: Mercedes Munguia Hospital Course Hospital Course: Arrived to unit, PTL was diagnosed and arrangements made to transfer [place] [facility] [place] [facility] [place], contractions controlled with Nifedipine and celestone give prior to transfer. Home Meds and New Rx's Prescriptions: No Action melatonin 5 mg tablet 5 mg PO HS PRN cholecalciferol (vitamin D3) [Vitamin D3] 10 mcg (400 unit) tablet,chewable 10 mcg PO DAILY PRN Zyrtec 10 mg capsule 10 mg PO DAILY PRN (Reason: allergy symptoms) Plus Vitamin-Mineral 27 mg iron- 1 mg tablet 1 tab PO DAILY Qty: 90 4RF ferrous sulfate 325 mg (65 mg iron) tablet 325 mg PO DAILY PRN bupropion HCl 150 mg tablet extended release 24 hr 150 mg PO DAILY Qty: 90 1RF lamotrigine 100 mg tablet 50 mg PO DAILY Qty: 90 1RF sertraline 100 mg tablet 50 mg PO DAILY Qty: 90 1RF Discharge Instructions Activity:: Activity as Tolerated Equipment/Supplies:: No Equipment Needed Diet:: Normal Diet Discharge Orders Discharge Orders: Discharge Order (Routine); Ordered 04/05/25 Ordered By: Sondra Guajardo Discharge Data Discharge Date/Time-TO BE ENTERED AT DEPARTURE: 04/05/25 21:58 OB:DS Summary Contraception Discussed Contraception Discussed: No, Status at Discharge Functional status at discharge: independent ambulation Overall status at discharge: patient is not back to baseline Mental Status: mental status grossly normal Speech and Movement: speech and movement normal and speech clear Mood: anxious mood (appropriate to clinical situation) Affect: normal affect Quality:SDOH Health Related Social Needs: Health related social needs details provider aware Exam Physical Exam Vital signs: Temp Pulse Resp BP Pulse Ox 98.1 F 98 H 16 119/64 98 04/05/25 21:11 04/05/25 21:11 04/05/25 21:11 04/05/25 21:11 04/05/25 19:58 Vital Signs Reviewed: Yes Constitutional Constitutional: mild distress, thin and cooperative HEENT Exam HEENT Exam: Normal Neck Exam Neck Exam: Normal Respiratory Exam Respiratory Exam: Normal Cardiovascular Exam Cardiovascular Exam: Normal Rectal Exam Rectal Exam: Normal Back/Spine/Pelvis Exam Back Exam: Normal Skin Exam Skin Exam: Normal Neurological Exam Neurological Exam: Normal Psychiatric Exam Psychiatric Exam: Normal PFSH All Active Problems (Updated 04/05/25 @ 21:26 by Sondra Guajardo) labor in third trimester (Acute) 33 weeks gestation of (Acute) Teratogen exposure in current , single gestation (Acute) (Acute) Anemia (Chronic) Depression (Chronic) Misdiagnosed as bipolar. has psychiatrist prescriber. [facility] Medical History (Updated 04/05/25 @ 21:26 by Sondra Guajardo) Marijuana use quit with Maternal varicella, non-immune Anxiety Bipolar 1 disorder Family History Mother Colon polyps Thyroid condition Father , 38 Epilepsy Brother No problems noted. Maternal Grandfather , 60'S Cancer Brain cancer Maternal Grandmother Depression Paternal Grandmother Depression Anxiety Maternal Aunt Breast cancer Paternal Grandfather Heart disease Paternal Aunt PKU (phenylketonuria) Social History Smoking/Tobacco Use Status: Never Second Hand Exposure: No Smoking risk assessment performed?: Yes Alcohol Intake: current Alcohol Intake frequency: 0-2 drinks per day Alcohol type: beer and wine Counseling given: Yes Details: recommended max of 1 beer/day. Decrease ETOH content in beer Drug use: Socially Substance use type: marijuana Details: not since for mj and alcohol Adopted: No Caregiver/Support person: No Household members: spouse and children Housing: house Number of Children: 1 number of grandchildren: 0 Communication Needs: None Education Level: college Details: [employer]. 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 Pets and animals: Yes Pets and animals: dog(s) Sexually active: Yes Do you think of yourself as: bisexual Current gender identity: female What is your relationship status?: How often do you talk on the phone with friends or family?: twice per week How often do you get together with friends or relatives?: twice per week Do you belong to any clubs or organized social groups?: yes Panel score (0-1 are the most socially isolated patients): 3 What type of physical activity do you participate in: walking, bicycling and other Details: Gardening,Skiing, chasing a toddler around the house everyday Duration: 30-45 minutes/day Frequency: daily Hermila/Jew: No preference Special hermila needs: No Seatbelt use: always Helmet use: Yes Helmet use: always Drive intox or ride w/intox cdl company flatbed driver: No Firearms in home: No Do you feel safe at home: Yes Do you feel safe in your relationship?: Yes Victim of physical abuse: No Victim of emotional abuse: No Victim of sexual abuse: No Would you like helpful sources: No Female Reproductive History Menstrual control method: progestin IUCD History History 2 Para 1 Hx # Term Pregnancies 1 Multiple births 0 Hx # Pregnancies 0 Ectopic pregnancies 0 AB induced 0 Hx Number of Living Children 1 AB spontaneous 0 Past Pregnancies Del. Date GA/Weeks # Preg Succ Route Wgt Sex Labor Lgth Anesth esia Location [facility] 03/15/23 40 No Yes vaginal 8 lb 5 oz Male 20hrs 12min DESTINY Sanchez Delivery Date: 03/15/23 Last Updated by: ERNST Gaines; 1st degree labial laceration repair DS: Data Vitals/I&O Vitals and I&O: Vital Signs Temperature 98.1 F 04/05/25 21:11 Temperature 98.1 F 04/05/25 21:08 Temperature Source Oral 04/05/25 19:58 Pulse 98 H 04/05/25 21:11 Pulse 98 04/05/25 21:08 Respiratory Rate 16 04/05/25 21:11 Blood Pressure 119/64 04/05/25 21:11 Blood Pressure 119/64 04/05/25 21:08 Blood Pressure Mean 82 04/05/25 19:58 Pulse Oximetry 98 04/05/25 19:58 Oxygen Delivery Method Room Air 04/05/25 21:11 Oxygen Flow Rate 0 04/05/25 21:11
[2025-04-09 12:19] LABS: Chlamydia Result Negative (Negative); GC Result Negative (Negative)
== END 2025-04-05 21:58 | disposition short-term general hospital (02) | DRG 833 ==
LOC: OBS 04-29 16:09
PROVIDERS: Admitting Provider Advanced Practice Midwife; PCP Family Medicine; Visit Provider Advanced Practice Midwife
DX: O60.03 Preterm labor without delivery, third trimester (principal); Z3A.33 33 weeks gestation of pregnancy; O99.343 Other mental disorders complicating pregnancy, third trimester; F32.A Depression, unspecified
CPT/HCPCS: 80307; 85027; 86850; 86900; 86901; 87491; 87591; 59025; 87081; 87480; 87510; 87660; G0378; J0702

== ENCOUNTER 2025-08-13 10:20 | Outpatient (REF) | payer BC, SELFPAY ==
[2025-08-14 12:26] LABS: Chlamydia Result Negative (Negative); GC Result Negative (Negative)
== END 2025-08-13 10:21 | disposition home or self-care (01) ==
LOC: LBN 10:20
PROVIDERS: PCP Family Medicine; Visit Provider Obstetrics & Gynecology
DX: Z12.4 Encounter for screening for malignant neoplasm of cervix (principal)
CPT/HCPCS: 87491; 87591; 88142